=== PATIENT | female | born 1965 | race Caucasian/White ===

== ENCOUNTER 2016-11-01 17:38 | Inpatient (IN) | payer MEDICARE ==
[~2016-11-01] VITALS: Ht 162.5 cm; Wt 89.8 kg
--- NOTE | ~2016-11-01 | WRIGHTHP ---
[place], [place] PATIENT HISTORY AND PHYSICAL EXAM NAME: SANDRA HAM [facility] #: [id number] UNIT #: [id number] ROOM: 402 DOCTOR: NILSA AMBROCIO DO BIRTHDATE: [birth year] DOS: PRIMARY CARE PHYSICIAN: Dr. Mcgill. The patient was seen and evaluated with the resident on 11/02/2016. Please see the resident's note for further details. ASSESSMENT: 1. Acute chronic obstructive pulmonary disease exacerbation. 2. Coronary artery disease with history of ST elevation myocardial infarction in August 2015, which was treated with a stent. 3. Hypertension. 4. Hyperlipidemia. 5. Diabetes mellitus type 2, currently diet controlled. 6. Tobacco abuse. 7. History of heroin abuse. She states she has been clean for a few years now. 8. History of hepatitis C with a positive antibody detected in May 2014. 9. Chronic back pain. 10. History of cervical cancer. 11. Echocardiogram in 2015 measured a normal ejection fraction. PLAN: Continue current treatment with steroids, antibiotics and aerosol treatments. Continue supportive care. NILSA AMBROCIO DO CM:HISPHYS:PATIENT HISTORY AND PHYSICAL EXAMINATION 1502 1531 NILSA AMBROCIO DO 11/02/16 1532 interface
[~2016-11-01 17:38] MED LIST: ABILIFY1 MG/ML PO; ASPIR LOW81 MG PO; BACTRIM DS 8001 TA1 PO; BP PILL; BRILINTA90 M1 PO; CELEXA10 MG PO; CIPRO250 MG PO; CORTISPORIN 1%-10 M1 OT; DONNATAL1 TAB PO; ELMIRON100 MG PO; FLAGYL500 MG PO; Flovent 44 Mcg44 MCG INH; K-LOR 20MEQ20 ME1 PO; KEFLEX500 MG PO; KENALOG 0.025%15 GM T; LIPITOR40 MG PO; METOPROLOL SUCC25 M2 PO; MOBIC7.5 MG PO; MORPHINE SULFAT15 MG PO; Motrin,Rufen800 MG PO; NEURONTIN300 MG PO; NORCO 325 MG-51 TAB PO; OXYCONTIN10 M1 PO; PHENERGAN25 M1 PO; PROVENTIL2 MG INH; PYRIDIUM200 MG PO; REMERON15 MG PO; RIBASPHERE200 M1 PO; SOVALDI400 M1 PO; SPIRIVA RESPIMAT4 GM INH; SPIRIVA18 MCG PO; SUBOXONE 8 MG-1 EACH PO; URIBEL CAPSULE1 EACH PO; VESICARE5 MG PO; VICODIN ES 7.51 EACH PO; VISTARIL25 M1 PO; WELLBUTRIN SR200 MG PO; ZANTAC 150150 MG PO; ZITHROMAX Z PA250 MG PO; ZITHROMAX250 MG PO
[2016-11-01 17:41] VITALS: BP 161/82
[2016-11-01 18:55] VITALS: BP 134/81
[2016-11-01 18:59] LABS: BASO % 0.2 % (0.0-1.0); EOS # 0.2 10*3/uL (0.0-0.4); EOS % 2.3 % (1.0-4.0); HEMATOCRIT 42.5 % (37.0-47.0); HEMOGLOBIN 13.3 g/dl (12.0-16.0); LYMPH # 2.3 10*3/uL (1.3-4.4); LYMPH % 27.8 % (27.0-41.0); MEAN CELL VOLUME 89.9 fl (81.0-99.0); MEAN CORPUSCULAR HGB 28.1 pg (27.0-31.0); MEAN CORPUSCULAR HGB CONC 31.3 g/dl (33.0-37.0); MEAN PLATELET VOLUME 9.4 fl (9.6-12.3); MONO # 0.5 10*3/uL (0.1-1.0); MONO % 6.3 % (3.0-9.0); NEUT # 5.2 10*3/uL (2.3-7.9); NEUT % 62.9 % (47.0-73.0); PLATELET COUNT AUTOMATED 200 10*3/uL (130-400); RED BLOOD COUNT 4.73 10*6/uL (4.10-5.10); RED CELL DISTRI WIDTH 15.6 % (0-14.5); WHITE BLOOD COUNT 8.3 10*3/uL (4.8-10.8)
[2016-11-01 19:09] LABS: PROTHROMBIN TIME 10.2 SECONDS (9.0-12.4)
[2016-11-01 19:23] LABS: BILIRUBIN, TOTAL 0.4 mg/dl (0.2-1.0); CHLORIDE 99 mmol/L (98-107)
[2016-11-01 19:26] LABS: ALBUMIN 3.4 gm/dl (3.1-4.5); ALKALINE PHOSPHATASE 141 U/L (45-117); BUN 6 mg/dl (7-24); C-REACTIVE PROTEIN 2.23 MG/DL (0-0.3); CARBON DIOXIDE 32 mmol/L (21-32); CKMB 0.5 ng/ml (0.5-3.6); CPK 56 U/L (26-192); EST GLOM FILT AFRICAN AMERICAN > 60 ml/min; GLUCOSE 133 mg/dL (65-99); MAGNESIUM 2.2 mg/dL (1.5-2.1); POTASSIUM 3.8 mmol/L (3.5-5.1); SGOT/AST 18 IU/L (3-35); SGPT/ALT 16 U/L (12-78); SODIUM 138 mmol/L (136-145); TOTAL PROTEIN 8.2 gm/dL (6.4-8.2)
[2016-11-01 19:27] LABS: TROPONIN I < 0.015 ng/ml (<0.045)
[2016-11-01 19:46] VITALS: BP 127/67
[2016-11-01 20:18] VITALS: BP 114/61
[2016-11-01 20:45] VITALS: BP 114/77
[2016-11-02] VITALS: BP 144/57; BP 97/55
[2016-11-02 07:00] LABS: BASO % 0.2 % (0.0-1.0); EOS % 0.2 % (1.0-4.0); HEMATOCRIT 43.7 % (37.0-47.0); HEMOGLOBIN 13.6 g/dl (12.0-16.0); LYMPH # 0.9 10*3/uL (1.3-4.4); LYMPH % 17.8 % (27.0-41.0); MEAN CELL VOLUME 91.4 fl (81.0-99.0); MEAN CORPUSCULAR HGB 28.5 pg (27.0-31.0); MEAN CORPUSCULAR HGB CONC 31.1 g/dl (33.0-37.0); MONO # 0.1 10*3/uL (0.1-1.0); MONO % 1.3 % (3.0-9.0); NEUT # 4.2 10*3/uL (2.3-7.9); NEUT % 79.9 % (47.0-73.0); PLATELET COUNT AUTOMATED 196 10*3/uL (130-400); RED BLOOD COUNT 4.78 10*6/uL (4.10-5.10); RED CELL DISTRI WIDTH 15.4 % (0-14.5); WHITE BLOOD COUNT 5.2 10*3/uL (4.8-10.8)
[2016-11-02 07:34] LABS: ALBUMIN 3.1 gm/dl (3.1-4.5); BILIRUBIN, TOTAL 0.3 mg/dl (0.2-1.0); BUN 8 mg/dl (7-24); CARBON DIOXIDE 33 mmol/L (21-32); CHLORIDE 100 mmol/L (98-107); CHOLESTEROL 125 mg/dL (<200); GLUCOSE 251 mg/dL (65-99); MAGNESIUM 2.2 mg/dL (1.5-2.1); POTASSIUM 4.1 mmol/L (3.5-5.1); SODIUM 139 mmol/L (136-145)
[2016-11-02 07:42] LABS: ALKALINE PHOSPHATASE 142 U/L (45-117); EST GLOM FILT AFRICAN AMERICAN > 60 ml/min; FREE T4 1.23 ng/dl (0.76-1.46); HDL CHOLESTEROL 37 mg/dl (40-60); LDL CHOLESTEROL 72 mg/dL (9-159); PHOSPHOROUS 2.8 mg/dL (2.5-4.9); SGOT/AST 17 IU/L (3-35); SGPT/ALT 17 U/L (12-78); THYROID STIM HORMONE (HS) 0.669 uIU/ml (0.358-4.75); TRIGLYCERIDES 80 mg/dl (<150); VLDL CHOLESTEROL 16 mg/dL (6-40)
[2016-11-02 07:59] LABS: HEMOGLOBIN A1c 7.2 % (4.8-5.6)
[2016-11-02 08:00] VITALS: BP 123/62
[2016-11-02 08:45] LABS: VITAMIN D, 25-HYDROXY 15.1 ng/mL (30-100)
[2016-11-02 08:46] LABS: FOLIC ACID 12.2 ng/mL (>5.38)
[2016-11-02 12:00] VITALS: BP 122/60
[2016-11-02 16:00] VITALS: BP 94/52
[2016-11-02 20:00] VITALS: BP 106/52
[2016-11-03] VITALS: BP 116/58
[2016-11-03 06:59] LABS: BASO % 0.2 % (0.0-1.0); HEMATOCRIT 40.5 % (37.0-47.0); HEMOGLOBIN 12.6 g/dl (12.0-16.0); IG # 0.1 10*3/uL (0.0-0.1); LYMPH # 1.2 10*3/uL (1.3-4.4); LYMPH % 10.7 % (27.0-41.0); MEAN CELL VOLUME 89.2 fl (81.0-99.0); MEAN CORPUSCULAR HGB 27.8 pg (27.0-31.0); MEAN CORPUSCULAR HGB CONC 31.1 g/dl (33.0-37.0); MONO # 0.2 10*3/uL (0.1-1.0); MONO % 1.8 % (3.0-9.0); NEUT # 9.4 10*3/uL (2.3-7.9); NEUT % 86.5 % (47.0-73.0); PLATELET COUNT AUTOMATED 180 10*3/uL (130-400); RED BLOOD COUNT 4.54 10*6/uL (4.10-5.10); WHITE BLOOD COUNT 10.9 10*3/uL (4.8-10.8)
[2016-11-03 07:16] LABS: ALBUMIN 2.8 gm/dl (3.1-4.5); ALKALINE PHOSPHATASE 114 U/L (45-117); BILIRUBIN, TOTAL 0.2 mg/dl (0.2-1.0); BUN 10 mg/dl (7-24); CARBON DIOXIDE 30 mmol/L (21-32); CHLORIDE 98 mmol/L (98-107); EST GLOM FILT AFRICAN AMERICAN > 60 ml/min; GLUCOSE 350 mg/dL (65-99); MAGNESIUM 2.3 mg/dL (1.5-2.1); POTASSIUM 4.7 mmol/L (3.5-5.1); SGOT/AST 10 IU/L (3-35); SGPT/ALT 14 U/L (12-78); SODIUM 138 mmol/L (136-145); TOTAL PROTEIN 7.3 gm/dL (6.4-8.2)
[2016-11-03 08:00] VITALS: BP 112/60
[2016-11-03 12:00] VITALS: BP 135/81
[2016-11-03 16:00] VITALS: BP 119/46
[2016-11-03 20:00] VITALS: BP 123/63
[2016-11-04] VITALS: BP 123/71
[2016-11-04 06:30] LABS: BASO % 0.1 % (0.0-1.0); HEMATOCRIT 40.4 % (37.0-47.0); HEMOGLOBIN 12.8 g/dl (12.0-16.0); IG # 0.1 10*3/uL (0.0-0.1); MEAN CORPUSCULAR HGB 28.5 pg (27.0-31.0); MEAN CORPUSCULAR HGB CONC 31.7 g/dl (33.0-37.0); MONO # 0.2 10*3/uL (0.1-1.0); MONO % 1.4 % (3.0-9.0); NEUT # 10.9 10*3/uL (2.3-7.9); NEUT % 89.6 % (47.0-73.0); PLATELET COUNT AUTOMATED 192 10*3/uL (130-400); RED BLOOD COUNT 4.49 10*6/uL (4.10-5.10); RED CELL DISTRI WIDTH 15.2 % (0-14.5); WHITE BLOOD COUNT 12.2 10*3/uL (4.8-10.8)
[2016-11-04 06:35] LABS: ALKALINE PHOSPHATASE 107 U/L (45-117); BILIRUBIN, TOTAL 0.2 mg/dl (0.2-1.0); BUN 14 mg/dl (7-24); CARBON DIOXIDE 33 mmol/L (21-32); CHLORIDE 97 mmol/L (98-107); EST GLOM FILT AFRICAN AMERICAN > 60 ml/min; GLUCOSE 334 mg/dL (65-99); MAGNESIUM 2.1 mg/dL (1.5-2.1); POTASSIUM 4.8 mmol/L (3.5-5.1); SGOT/AST 8 IU/L (3-35); SGPT/ALT 14 U/L (12-78); SODIUM 133 mmol/L (136-145); TOTAL PROTEIN 7.6 gm/dL (6.4-8.2)
[2016-11-04 08:00] VITALS: BP 128/72
[2016-11-04 12:00] VITALS: BP 140/76
[2016-11-04] MEDS ORDERED: PREDNISONE10 MG PO (13:01)
[2016-11-04] MEDS ORDERED: LEVAQUIN750 M1 PO (13:01)
[2016-11-04] MEDS ORDERED: DUONEB 3 MG/3 ML3 M1 NEB (13:44)
== END 2016-11-04 14:08 | disposition home or self-care (01) | DRG 191 ==
LOC: ED 17:38 → 4E 19:42 → EDHOLD 19:42 → 4E 20:02
PROVIDERS: Emergency Medicine; Internal Medicine; Nurse Practitioner Family
DX: J44.1 Chronic obstructive pulmonary disease with (acute) exacerbation (principal); E44.1 Mild protein-calorie malnutrition; Z99.81 Dependence on supplemental oxygen; E11.65 Type 2 diabetes mellitus with hyperglycemia; I10 Essential (primary) hypertension; E78.5 Hyperlipidemia, unspecified; I25.118 Atherosclerotic heart disease of native coronary artery with other forms of angina pectoris; E83.41 Hypermagnesemia; K59.09 Other constipation; F17.210 Nicotine dependence, cigarettes, uncomplicated; F11.10 Opioid abuse, uncomplicated; M54.5 Low back pain; B19.20 Unspecified viral hepatitis C without hepatic coma; G89.29 Other chronic pain; E66.9 Obesity, unspecified; I25.2 Old myocardial infarction; Z85.41 Personal history of malignant neoplasm of cervix uteri; Z68.32 Body mass index [BMI] 32.0-32.9, adult; Z90.710 Acquired absence of both cervix and uterus; Z98.51 Tubal ligation status; Z71.6 Tobacco abuse counseling; Z88.8 Allergy status to other drugs, medicaments and biological substances; Z79.82 Long term (current) use of aspirin; Z79.899 Other long term (current) drug therapy; Z80.1 Family history of malignant neoplasm of trachea, bronchus and lung; Z82.49 Family history of ischemic heart disease and other diseases of the circulatory system; Z82.5 Family history of asthma and other chronic lower respiratory diseases

== ENCOUNTER 2016-12-28 10:10 | Emergency (ER) | payer MEDICARE ==
[~2016-12-28] VITALS: Ht 165.1 cm; Wt 86.2 kg
[~2016-12-28 10:10] MED LIST changes: +DUONEB 3 MG/3 ML3 M1 NEB; +LEVAQUIN750 M1 PO; +PREDNISONE10 MG PO
[2016-12-28] MEDS ORDERED: CLINDAMYCIN150 MG PO (10:31)
[2016-12-28] MEDS ORDERED: SILVADENE1% T (10:31)
== END 2016-12-28 10:47 | disposition home or self-care (01) ==
LOC: ED 10:10
DX: L55.1 Sunburn of second degree (principal); I10 Essential (primary) hypertension; I25.10 Atherosclerotic heart disease of native coronary artery without angina pectoris; J44.9 Chronic obstructive pulmonary disease, unspecified; E78.5 Hyperlipidemia, unspecified; F17.200 Nicotine dependence, unspecified, uncomplicated; Z88.8 Allergy status to other drugs, medicaments and biological substances; Z79.82 Long term (current) use of aspirin

== ENCOUNTER → 2017-04-26 | Day surgery (SDC) | payer MEDICARE ==
[~2017-04-26] VITALS: Ht 162.5 cm; Wt 88.9 kg
[~2017-04-26] MED LIST changes: +CLINDAMYCIN150 MG PO; +GLUCOTROL5 MG PO; +SILVADENE1% T; +TRADJENTA5 M1 PO
--- NOTE | ~2017-04-26 | PROC NOTE ---
[place], [place] PROCEDURE NOTE NAME: SANDRA HAM UNIT #: [id number] ROOM: DOCTOR: JAIRO CONRAD MD BIRTHDATE: [birth year] DOS: 04/26/2017 PREOPERATIVE DIAGNOSES: History of constipation, previous history of colonic polyps. POSTOPERATIVE DIAGNOSES: Colonic polyps x 3 (rectum, 30 cm, 45 cm from the anal verge), sigmoid diverticulosis, internal hemorrhoids. PROCEDURE: Colonoscopy. ENDOSCOPIST: Jairo Conrad MD PEAR PICKER: KENNETH. ANESTHESIA: MAC. INDICATIONS: This is a 51-year-old lady who is here for colonoscopy. She has a previous history of colon polyps that were removed a few years ago and also history of constipation. The procedure and its complications were explained to the patient in detail preoperatively. Complications that were discussed included but were not limited to bleeding, missed lesions and colon perforation. She agreed to proceed. DESCRIPTION OF PROCEDURE: After identifying the patient, the patient was brought to the endoscopy suite and placed in the left lateral position. After time-out procedure was called, IV sedation was administered by the Anesthesia team. A rectal exam was performed, which was within normal limits. An adult colonoscope was now introduced into the anal canal and advanced sequentially into the rectum, sigmoid colon, descending colon, transverse colon, ascending colon, up to the cecum. The prep was found to be optimal. Upon reaching the cecum, the scope was withdrawn. At 45 cm, 30 cm and in the rectum a small polyps were identified, which were removed in a piecemeal process with the help of a biopsy forceps. They were sent for histopathological diagnosis. Thereafter, the scope was withdrawn and upon retroflexing the scope in the rectum, there was found to be internal hemorrhoids, also encountered was uncomplicated sigmoid diverticulosis. The scope was then withdrawn. The patient was taken to the recovery room in stable fashion. There were no complications. Dr. Jairo Conrad, the attending surgeon, was present throughout the operating case. Based on these findings, the patient is recommended to have another colonoscopy in the next 2-5 years or sooner if she has new symptoms. [place], [place] PROCEDURE NOTE NAME: SANDRA HAM UNIT #: [id number] ROOM: DOCTOR: JAIRO CONRAD MD BIRTHDATE: [birth year] Jairo Conrad MD CM:KATHYA:PROCEDURE NOTE [id number] [id number] JAIRO CONRAD MD
[2017-04-26 06:45] VITALS: BP 135/78
[2017-04-26 07:59] VITALS: BP 136/78
[2017-04-26 08:15] VITALS: BP 141/77
[2017-04-26 08:30] VITALS: BP 110/65
== END | disposition home or self-care (01) ==
LOC: SDC 04-23 08:00
DX: Z09 Encounter for follow-up examination after completed treatment for conditions other than malignant neoplasm (principal); D12.5 Benign neoplasm of sigmoid colon; K62.1 Rectal polyp; K57.30 Diverticulosis of large intestine without perforation or abscess without bleeding; K64.8 Other hemorrhoids; I25.2 Old myocardial infarction; I25.10 Atherosclerotic heart disease of native coronary artery without angina pectoris; F17.210 Nicotine dependence, cigarettes, uncomplicated; I11.0 Hypertensive heart disease with heart failure; J44.9 Chronic obstructive pulmonary disease, unspecified; Z95.5 Presence of coronary angioplasty implant and graft; I50.9 Heart failure, unspecified; E78.5 Hyperlipidemia, unspecified; B19.20 Unspecified viral hepatitis C without hepatic coma; E11.9 Type 2 diabetes mellitus without complications; Z79.899 Other long term (current) drug therapy; Z88.8 Allergy status to other drugs, medicaments and biological substances; Z90.710 Acquired absence of both cervix and uterus; Z98.890 Other specified postprocedural states; F32.9 Major depressive disorder, single episode, unspecified; Z98.51 Tubal ligation status; Z83.3 Family history of diabetes mellitus; Z80.9 Family history of malignant neoplasm, unspecified

== ENCOUNTER → 2017-05-30 | Outpatient (CLI) | payer MEDICARE ==
[2017-05-30 12:23] LABS: BASO % 0.2 % (0.0-1.0); EOS # 0.2 10*3/uL (0.0-0.4); EOS % 2.5 % (1.0-4.0); HEMATOCRIT 44.6 % (37.0-47.0); HEMOGLOBIN 14.2 g/dl (12.0-16.0); LYMPH # 2.5 10*3/uL (1.3-4.4); LYMPH % 26.4 % (27.0-41.0); MEAN CELL VOLUME 91.4 fl (81.0-99.0); MEAN CORPUSCULAR HGB 29.1 pg (27.0-31.0); MEAN CORPUSCULAR HGB CONC 31.8 g/dl (33.0-37.0); MEAN PLATELET VOLUME 9.1 fl (9.6-12.3); MONO # 0.5 10*3/uL (0.1-1.0); MONO % 5.4 % (3.0-9.0); NEUT # 6.3 10*3/uL (2.3-7.9); NEUT % 65.1 % (47.0-73.0); PLATELET COUNT AUTOMATED 219 10*3/uL (130-400); RED BLOOD COUNT 4.88 10*6/uL (4.10-5.10); RED CELL DISTRI WIDTH 14.4 % (0-14.5); WHITE BLOOD COUNT 9.6 10*3/uL (4.8-10.8)
[2017-05-30 12:41] LABS: ALBUMIN 3.2 gm/dl (3.1-4.5); ALKALINE PHOSPHATASE 152 U/L (45-117); BUN 5 mg/dl (7-24); CHLORIDE 101 mmol/L (98-107); CREATININE 0.58 mg/dL (0.55-1.02); LDH 152 U/L (84-246); PHOSPHOROUS 2.6 mg/dL (2.5-4.9); POTASSIUM 3.7 mmol/L (3.5-5.1); SGOT/AST 21 IU/L (3-35); SGPT/ALT 20 U/L (12-78); SODIUM 137 mmol/L (136-145); TOTAL PROTEIN 8.4 gm/dL (6.4-8.2)
== END | disposition home or self-care (01) ==
LOC: LAB 12:00
PROVIDERS: Obstetrics & Gynecology Gynecologic Oncology
DX: Z01.818 Encounter for other preprocedural examination (principal); N89.3 Dysplasia of vagina, unspecified; F17.200 Nicotine dependence, unspecified, uncomplicated; J45.909 Unspecified asthma, uncomplicated; J43.9 Emphysema, unspecified

== ENCOUNTER → 2017-10-19 | Outpatient (CLI) | payer MEDICARE | END | disposition home or self-care (01) | LOC: US 10:51 | DX: N32.89 Other specified disorders of bladder (principal) ==

== ENCOUNTER → 2018-04-09 | Outpatient (CLI) | payer MEDICARE | END | disposition home or self-care (01) | LOC: MAMMO 08:26 | DX: Z12.31 Encounter for screening mammogram for malignant neoplasm of breast (principal) ==

== ENCOUNTER 2018-11-13 11:31 | Inpatient (IN) | payer MEDICARE ==
[~2018-11-13] VITALS: Ht 162.5 cm; Wt 85.5 kg
--- NOTE | ~2018-11-13 | EKG ---
[place], [place] ELECTROCARDIOGRAM REPORT NAME: SANDRA HAM UNIT #: [id number] ROOM: 504 DOCTOR: SHANAE DRAFT REPORT BIRTHDATE: [birth year] [facility] Test Date: 2018-11-13 Test Time: 11:31:22 Pat Name: SANDRA HAM Department: Room: 504 Gender: F Pilot Instructor: Tom Burns : 1965 Requested By: SHARAD WALDEN Order Number: [id number] Reading MD: Akhil Park MD Measurements Intervals [place] Rate: 79 P: 37 IA: 141 QRS: 66 QRSD: 111 T: 51 QT: 384 QTc: 441 Interpretive Statements Sinus rhythm Baseline wander in lead(s) V2 Electronically Signed On 11-13-2018 15:50:35 PDT by Akhil Park MD CM:EKGRPT:ELECTROCARDIOGRAM REPORT 1131 1550 SHARAD JOLLY DRAFT REPORT SHARAD WALDEN MD
--- NOTE | ~2018-11-13 | EKG ---
[place], [place] ELECTROCARDIOGRAM REPORT NAME: SANDRA HAM UNIT #: [id number] ROOM: 504 DOCTOR: SHANAE DRAFT REPORT BIRTHDATE: [birth year] [facility] Test Date: 2018-11-13 Test Time: 17:39:57 Pat Name: SANDRA HAM Department: Room: 504 Gender: F Supply Chain Intern: : 1965 Requested By: SHARAD WALDEN Order Number: [id number] Reading MD: Akhil Park MD Measurements Intervals [place] Rate: 69 P: 47 W[place]: 138 QRS: 74 QRSD: 89 T: 59 QT: 429 QTc: 460 Interpretive Statements Sinus rhythm Electronically Signed On 11-13-2018 15:54:07 PDT by Akhil Park MD CM:EKGRPT:ELECTROCARDIOGRAM REPORT [id number] 1554 SHARAD WALDEN MD EPIPHANY DRAFT REPORT SHARAD WALDEN MD
--- NOTE | ~2018-11-13 | EKG ---
[place], [place] ELECTROCARDIOGRAM REPORT NAME: SANDRA HAM UNIT #: [id number] ROOM: 504 DOCTOR: SHANAE DRAFT REPORT BIRTHDATE: [birth year] [facility] Test Date: 2018-11-13 Test Time: 16:12:38 Pat Name: SANDRA HAM Department: Room: [facility] Gender: F Calender Feeder: Priscilla : 1965 Requested By: SHARAD WALDEN Order Number: [id number] Reading MD: Akhil Park MD Measurements Intervals [place] Rate: 68 P: 41 VT: 143 QRS: 66 QRSD: 90 T: 49 QT: 433 QTc: 461 Interpretive Statements Sinus rhythm Baseline wander in lead(s) V5 Electronically Signed On 11-13-2018 15:53:24 PDT by Akhil Park MD CM:EKGRPT:ELECTROCARDIOGRAM REPORT 1612 1553 SHARAD JOLLY DRAFT REPORT SHARAD WALDEN MD
[2018-11-13 11:38] VITALS: BP 117/68
[2018-11-13 11:49] LABS: BASO % 0.3 % (0.0-1.0); EOS # 0.2 10*3/uL (0.0-0.4); EOS % 1.6 % (1.0-4.0); LYMPH # 2.6 10*3/uL (1.3-4.4); LYMPH % 21.7 % (27.0-41.0); MEAN CELL VOLUME 89.7 fl (81.0-99.0); MEAN CORPUSCULAR HGB 28.8 pg (27.0-31.0); MEAN CORPUSCULAR HGB CONC 32.1 g/dl (33.0-37.0); MEAN PLATELET VOLUME 9.8 fl (9.6-12.3); MONO # 0.6 10*3/uL (0.1-1.0); MONO % 4.7 % (3.0-9.0); NEUT # 8.4 10*3/uL (2.3-7.9); NEUT % 71.2 % (47.0-73.0); PLATELET COUNT AUTOMATED 219 10*3/uL (130-400); RED BLOOD COUNT 5.91 10*6/uL (4.10-5.10); RED CELL DISTRI WIDTH 14.7 % (0-14.5); WHITE BLOOD COUNT 11.8 10*3/uL (4.8-10.8)
[2018-11-13 12:00] LABS: ACT PARTIAL THROMBO TIME 28.2 SECONDS (20.0-32.1); INTERNATIONAL NORM RATIO 0.9 (2.0-3.5)
[2018-11-13 12:06] LABS: ALBUMIN 3.4 gm/dl (3.1-4.5); ALKALINE PHOSPHATASE 179 U/L (45-117); BUN 5 mg/dl (7-24); CHLORIDE 96 mmol/L (98-107); CREATININE 0.78 mg/dL (0.55-1.02); POTASSIUM 4.1 mmol/L (3.5-5.1); SGOT/AST 25 IU/L (3-35); SGPT/ALT 28 U/L (12-78); SODIUM 135 mmol/L (136-145); TOTAL PROTEIN 8.6 gm/dL (6.4-8.2)
[2018-11-13 12:16] LABS: TROPONIN I < 0.015 ng/ml (<0.045)
[2018-11-13 12:31] VITALS: BP 109/66
[2018-11-13 13:35] VITALS: BP 107/66
--- NOTE | 2018-11-13 13:35 | NUR ---
A 53, admitted to 5E, under the services of NATALEE Veliz DO with a diagnosis of CHEST PAIN. Chief complaint is CHEST PAIN. Patient arrived via bed from ER. Monitor applied. Initial assessment completed. Vital signs taken and recorded. NATALEE VELIZ DO notified of admission to the unit. Orders received. See assessment for past medical history, medications and allergies. Patient and/or family oriented to unit. [facility] visitation policy reviewed. Clothing/patient valuable form completed. ASHLEY ROQUE
[2018-11-13 14:00] VITALS: BP 107/66
[2018-11-13] MEDS ORDERED: OZEMPIC0.25 MG/01 SQ (14:00)
--- NOTE | 2018-11-13 14:10 | NUR ---
MEDS RECONCILED WITH PT AT BEDSIDE AND CHECKED AGAINST CLAIM HISTORY.
--- NOTE | 2018-11-13 15:59 | NUR ---
RECEIVED REPORT FROM CHARLEEN DE LA GARZA
[2018-11-13 16:00] VITALS: BP 95/50
--- NOTE | 2018-11-13 16:00 | NUR ---
PTS HOME MEDICATIONS HAVE BEEN VERIFIED. DR GALVEZ NOTIFIED
--- NOTE | 2018-11-13 18:23 | NUR ---
CALLED ANSWERING SERVICE REGARDING NEW PT CONSULT FOR DR BASURTO. WAITING MANAGER PERSONAL BACK
--- NOTE | 2018-11-13 18:32 | NUR ---
SPOKE TO DR BASURTO REGARDING NEW PT CONSULT. ORDER TO KEEP PT NPO AFTER MIDNIGHT AND HE WILL SEE PT IN THE MORNING
[2018-11-13 20:00] VITALS: BP 95/61
--- NOTE | 2018-11-13 20:17 | NUR ---
24 HR chart check completed.
--- NOTE | 2018-11-13 20:30 | NUR ---
2010: PT ORDERED DA WITH DUONEB Q 6 HRS. PT REFUSED THEARPY. STATES SHE DOES NOT WANT THE THERAPY. I INFORMED HER OF THE FREQUESNCY AND MED THAT IS ORDERED AND SHE CAN CALL FOR A TREATMENT IF SHE WANTS ONE AT A LATER TIME.
--- NOTE | 2018-11-13 21:00 | NUR ---
RESTING IN BED WATCHING TV. NO DISTRESS NOTED. RESPIRATIONS EASY. LUNGS DIMINISHED WITH EXP WHEEZES. PULSE OX 95% 2L. SMOKERS COUGH NOTED. OFFERED AND EDUCATED REGARDING TEDS, DECLINED. CALL LIGHT WITHIN REACH. NO VOICED COMPLAINTS.
--- NOTE | 2018-11-13 22:00 | NUR ---
BSG 176. REFUSED SS COVERAGE. WILL RECHECK IN AM
[2018-11-14] VITALS: BP 94/62
--- NOTE | 2018-11-14 | NUR ---
SLEEPING. NO DISTRESS NOTED. RESPIRATIONS EASY. VSS. CALL LIGHT WITHIN REACH.
[2018-11-14] MEDS ORDERED: GABAPENTIN800 MG PO (01:26)
--- NOTE | 2018-11-14 04:10 | NUR ---
SLEEPING. O2 IN USE. CALL LIGHT WITHIN REACH
--- NOTE | 2018-11-14 06:00 | NUR ---
SLEPT THROUGHOUT NIGHT WITH NO DISTRESS NOTED. RESPIRATIONS EASY. O2 IN USE. NPO STATUS MAINTAINED UNTIL SEEN BY DR Nando BASURTO. CALL LIGHT WITHIN REACH. NO VOICED COMPLAINTS THIS SHIFT
[2018-11-14 06:45] LABS: ALBUMIN 3.1 gm/dl (3.1-4.5); ALKALINE PHOSPHATASE 160 U/L (45-117); BUN 8 mg/dl (7-24); CHLORIDE 99 mmol/L (98-107); PHOSPHOROUS 4.4 mg/dL (2.5-4.9); SGOT/AST 23 IU/L (3-35); SGPT/ALT 23 U/L (12-78); SODIUM 137 mmol/L (136-145); TOTAL PROTEIN 7.8 gm/dL (6.4-8.2)
[2018-11-14 06:49] LABS: BASO % 0.3 % (0.0-1.0); EOS # 0.3 10*3/uL (0.0-0.4); EOS % 2.9 % (1.0-4.0); HEMATOCRIT 51.2 % (37.0-47.0); HEMOGLOBIN 16.1 g/dl (12.0-16.0); LYMPH # 2.8 10*3/uL (1.3-4.4); LYMPH % 28.3 % (27.0-41.0); MEAN CELL VOLUME 90.3 fl (81.0-99.0); MEAN CORPUSCULAR HGB 28.4 pg (27.0-31.0); MEAN CORPUSCULAR HGB CONC 31.4 g/dl (33.0-37.0); MEAN PLATELET VOLUME 10.3 fl (9.6-12.3); MONO # 0.6 10*3/uL (0.1-1.0); NEUT # 6.1 10*3/uL (2.3-7.9); NEUT % 61.8 % (47.0-73.0); PLATELET COUNT AUTOMATED 206 10*3/uL (130-400); RED BLOOD COUNT 5.67 10*6/uL (4.10-5.10); RED CELL DISTRI WIDTH 14.9 % (0-14.5); WHITE BLOOD COUNT 9.9 10*3/uL (4.8-10.8)
[2018-11-14 12:10] LABS: VITAMIN D, 25-HYDROXY 14.3 ng/mL (30-100)
--- NOTE | 2018-11-14 12:11 | NUR ---
INFORMED SIGNED CONSENT OBTAINED FOR LEXISCAN STRESS TEST WITH DR BASURTO. RESTING EKG NSR HR 70 BP 69/64. PULSE OX 94% ON 2L NC. LUNGS CLEARLY DIMINISHED. PT COMPLETED ONE MINUTE OF A LEXISCAN PROTOCOL WITH PT RECEIVING LEXISCAN 0.4MG IV OVER 10 SECONDS. NO ARRHYTHMIAS OR ST CHANGES NOTED. PT C/P SOB WITH INJECTION. LAST RECOVERY HR OF 88 BP 94/60. PT IN STABLE CONDITION AWAITING NUCLEAR IMAGES.
--- NOTE | 2018-11-14 12:16 | NUR ---
Clinic Office Assistant in to talk to patient. Patient states lives at HOME with ALONE. There are NO steps in the home. Physician: MONICA BOYKIN [facility]acy: [facility] Home health services: NONE Patient's level of ADLs: INDEPENDENT Patient has working utilities: YES DME: OXYGEN AT HS Follow-up physician's appointment after d/c: WILL BE MADE BY HOSPITALIST NURSE DIRECTOR ON DISCHARGE Does patient want to access PORTAL?: NO Discharge plan PT LIVES AT HOME ALONE. STATES SHE IS INDEPENDENT IN HER CARE.. DENIES ANY NEEDS AT HOME AT THIS TIME. SHE HAS OXYGEN AT HOME BUT STATES SHE ONLY WEARS IT AT NIGHT. WILL CONTINUE TO FOLLOW. STATES SHE WILL HAVE A RIDE HOME ON DISCHARGE. AMARI LINDER
[2018-11-14 16:00] VITALS: BP 101/76
--- NOTE | 2018-11-14 17:20 | NUR ---
Discharge instructions reviewed with patient/family. Patient receptive and verbalizes understanding. Follow-up care arranged. Written instructions given to patient/family. JOANA FRANCE
== END 2018-11-14 17:20 | disposition home or self-care (01) | DRG 392 ==
LOC: ED 11:31 → 5E 12:50 → EDHOLD 12:50 → 5E 13:16
PROVIDERS: Emergency Medicine; Internal Medicine Nephrology; ADMIT Internal Medicine
PROC: 3E073KZ Introduction of Other Diagnostic Substance into Coronary Artery, Percutaneous Approach (ICD-10-PCS; principal; 2018-11-14)
PROC: 4A02XM4 Measurement of Cardiac Total Activity, External Approach (ICD-10-PCS; principal; 2018-11-14)
DX: K21.9 Gastro-esophageal reflux disease without esophagitis (principal); E66.9 Obesity, unspecified; R07.89 Other chest pain; I25.10 Atherosclerotic heart disease of native coronary artery without angina pectoris; E78.00 Pure hypercholesterolemia, unspecified; I25.2 Old myocardial infarction; K59.09 Other constipation; J44.9 Chronic obstructive pulmonary disease, unspecified; C53.9 Malignant neoplasm of cervix uteri, unspecified; M54.5 Low back pain; K64.8 Other hemorrhoids; K57.90 Diverticulosis of intestine, part unspecified, without perforation or abscess without bleeding; F17.210 Nicotine dependence, cigarettes, uncomplicated; D72.829 Elevated white blood cell count, unspecified; D72.810 Lymphocytopenia; D75.1 Secondary polycythemia; E87.8 Other disorders of electrolyte and fluid balance, not elsewhere classified; E11.65 Type 2 diabetes mellitus with hyperglycemia; E78.5 Hyperlipidemia, unspecified; G89.29 Other chronic pain; Z95.5 Presence of coronary angioplasty implant and graft; Z79.84 Long term (current) use of oral hypoglycemic drugs; Z88.8 Allergy status to other drugs, medicaments and biological substances; Z79.82 Long term (current) use of aspirin; Z98.51 Tubal ligation status; Z90.710 Acquired absence of both cervix and uterus; Z82.49 Family history of ischemic heart disease and other diseases of the circulatory system; Z80.1 Family history of malignant neoplasm of trachea, bronchus and lung; Z71.6 Tobacco abuse counseling; Z68.32 Body mass index [BMI] 32.0-32.9, adult

== ENCOUNTER → 2019-05-19 | Outpatient (CLI) | payer MEDICARE ==
[~2019-05-19] MED LIST changes: +GABAPENTIN800 MG PO; +OZEMPIC0.25 MG/01 SQ
== END | disposition home or self-care (01) ==
LOC: US 03:22
DX: R10.11 Right upper quadrant pain (principal); R10.13 Epigastric pain; R11.2 Nausea with vomiting, unspecified

== ENCOUNTER → 2019-06-18 | Outpatient (CLI) | payer MEDICARE | END | disposition home or self-care (01) | LOC: MAMMO 12:30 | DX: Z12.31 Encounter for screening mammogram for malignant neoplasm of breast (principal); E11.9 Type 2 diabetes mellitus without complications ==

== ENCOUNTER 2019-08-10 18:06 | Inpatient (IN) | payer MEDICARE ==
[~2019-08-10] VITALS: Ht 162.5 cm; Wt 86.9 kg
[2019-08-10 18:09] VITALS: BP 124/51
[2019-08-10 19:18] LABS: BASO % 0.3 % (0.0-1.0); EOS # 0.1 10*3/uL (0.0-0.4); EOS % 0.9 % (1.0-4.0); HEMATOCRIT 46.5 % (37.0-47.0); HEMOGLOBIN 14.9 g/dl (12.0-16.0); LYMPH # 1.2 10*3/uL (1.3-4.4); LYMPH % 17.3 % (27.0-41.0); MEAN CELL VOLUME 88.2 fl (81.0-99.0); MEAN CORPUSCULAR HGB 28.3 pg (27.0-31.0); MEAN PLATELET VOLUME 10.8 fl (9.6-12.3); MONO # 0.5 10*3/uL (0.1-1.0); MONO % 6.6 % (3.0-9.0); NEUT # 5.2 10*3/uL (2.3-7.9); NEUT % 74.3 % (47.0-73.0); PLATELET COUNT AUTOMATED 265 10*3/uL (130-400); RED BLOOD COUNT 5.27 10*6/uL (4.10-5.10); RED CELL DISTRI WIDTH 14.2 % (0-14.5)
[2019-08-10 19:32] LABS: ALBUMIN 3.3 gm/dl (3.1-4.5); ALKALINE PHOSPHATASE 165 U/L (45-117); BUN 6 mg/dl (7-24); CHLORIDE 96 mmol/L (98-107); CREATININE 0.77 mg/dL (0.55-1.02); POTASSIUM 4.6 mmol/L (3.5-5.1); SGOT/AST 36 IU/L (3-35); SGPT/ALT 31 U/L (12-78); SODIUM 132 mmol/L (136-145); TOTAL PROTEIN 8.5 gm/dL (6.4-8.2)
[2019-08-10 23:08] VITALS: BP 106/64
[2019-08-11] VITALS (7 sets, daily range): BP systolic 83–100; BP diastolic 39–81
[2019-08-11 05:24] LABS: ALBUMIN 2.8 gm/dl (3.1-4.5); ALKALINE PHOSPHATASE 144 U/L (45-117); BUN 6 mg/dl (7-24); CHLORIDE 103 mmol/L (98-107); CHOLESTEROL 89 mg/dL (<200); CREATININE 0.77 mg/dL (0.55-1.02); HDL CHOLESTEROL 23 mg/dl (40-60); LDL CHOLESTEROL 48 mg/dL (9-159); PHOSPHOROUS 3.9 mg/dL (2.5-4.9); POTASSIUM 4.3 mmol/L (3.5-5.1); SGOT/AST 31 IU/L (3-35); SGPT/ALT 28 U/L (12-78); SODIUM 135 mmol/L (136-145); TOTAL PROTEIN 7.3 gm/dL (6.4-8.2); TRIGLYCERIDES 92 mg/dl (<150); VLDL CHOLESTEROL 18 mg/dL (6-40)
[2019-08-11 06:06] LABS: BASO % 0.4 % (0.0-1.0); EOS # 0.1 10*3/uL (0.0-0.4); EOS % 0.9 % (1.0-4.0); HEMATOCRIT 46.8 % (37.0-47.0); HEMOGLOBIN 14.2 g/dl (12.0-16.0); LYMPH # 1.3 10*3/uL (1.3-4.4); LYMPH % 22.7 % (27.0-41.0); MEAN CORPUSCULAR HGB CONC 30.3 g/dl (33.0-37.0); MEAN PLATELET VOLUME 9.8 fl (9.6-12.3); MONO # 0.5 10*3/uL (0.1-1.0); MONO % 8.6 % (3.0-9.0); NEUT # 3.8 10*3/uL (2.3-7.9); RED BLOOD COUNT 5.07 10*6/uL (4.10-5.10); RED CELL DISTRI WIDTH 14.3 % (0-14.5); WHITE BLOOD COUNT 5.7 10*3/uL (4.8-10.8)
[2019-08-11 06:07] LABS: MEAN CELL VOLUME 92.3 fl (81.0-99.0); PLATELET COUNT AUTOMATED 181 10*3/uL (130-400)
[2019-08-11 07:18] LABS: VITAMIN D, 25-HYDROXY 10.1 ng/mL (30-100)
--- NOTE | 2019-08-11 07:57 | NUR ---
DR. ALVAREZ AWARE OF CONSULT
--- NOTE | 2019-08-11 09:54 | NUR ---
PHARMACY NOTIFIED PT PLT COUNT 181 FLAGGED ENOXAPARIN TOLD TO ADMINISTER MEDICATION
--- NOTE | 2019-08-11 09:55 | NUR ---
PT DENIES TAKING INSULIN DAILY STATES SHE ONLY TAKES MEDICATION (OZEMPIC) ONCE A WEEK
--- NOTE | 2019-08-11 11:50 | NUR ---
A 53YR old female, admitted to , under the services of FRANK Kasper DO with a diagnosis of pneumonia. Chief complaint is cough and congestion, N/V and fevers. Patient arrived via stretcher from ER. Monitor applied. Initial assessment completed. Vital signs taken and recorded. See assessment for past medical history, medications and allergies. Patient and/or family oriented to unit. [facility]. Clothing/patient valuable form completed. LUZ HUERTAS L
[2019-08-11] MEDS ORDERED: NEURONTIN800 MG PO (12:17)
--- NOTE | 2019-08-11 13:16 | NUR ---
MEDICATED WITH PO TYLENOL ORDERED PER PT REQUEST FOR C/O HEADACHE.
--- NOTE | 2019-08-11 13:23 | NUR ---
Seafood Fisherman in to talk to patient. Patient states lives at home alone with her family checking in on her. There are 0 steps in the home. There is an elevator. Physician: Jamison Campoverde Pharmacy: [facility] Home health services: none Patient's level of ADLs: INDEPENDENT Patient has working utilities: yes DME: O2 @ 3L nc @ HS and prn through the day, portable O2 tanks, nebulizer, O2 supplier [facility] Follow-up physician's appointment after d/c: will be made by the hospitalist nurse director upon discharge Does patient want to access PORTAL?: no Discharge plan discussed with patient. She lives at home alone in a [facility] building with her family checking in on her. She is independent in her ADLs and ambulation. Discussed home health care services and she denies any home needs at this time. She would like to see about getting a new nebulizer as hers broke and she is currently using her mother's. Hospitalist nurse director notified. When medically stable she will be discharged to home. She will have transportation on discharge just depends on when. RONNIE ZARATE
--- NOTE | 2019-08-11 15:25 | NUR ---
Faxed nebulizer prescription to [facility] where patient receives her other O2 supplies from
--- NOTE | 2019-08-11 20:00 | NUR ---
IN PT ROOM AT THIS TIME TO COMPLETE ASSESSMENT. PT MOVED ROOMS AND HAS ALL OF HER BELONGINGS WITH HER AND NO QUESTIONS OR CONCERNS AT THIS TIME. CALL LIGHT IS WITHIN REACH, WILL CONTINUE TO MONITOR
[2019-08-12] VITALS: BP 98/54
--- NOTE | 2019-08-12 01:02 | NUR ---
24 HR chart check completed.
--- NOTE | 2019-08-12 04:00 | NUR ---
Patient sleeping. Respirations relaxed and easy. Siderails up . [place] on. ASHLEE ASTUDILLO
[2019-08-12 07:18] LABS: HEMATOCRIT 43.2 % (37.0-47.0); HEMOGLOBIN 13.2 g/dl (12.0-16.0); LYMPH # 0.5 10*3/uL (1.3-4.4); LYMPH % 14.6 % (27.0-41.0); MEAN CELL VOLUME 91.5 fl (81.0-99.0); MEAN CORPUSCULAR HGB CONC 30.6 g/dl (33.0-37.0); MEAN PLATELET VOLUME 9.9 fl (9.6-12.3); MONO # 0.1 10*3/uL (0.1-1.0); NEUT # 2.9 10*3/uL (2.3-7.9); PLATELET COUNT AUTOMATED 158 10*3/uL (130-400); RED BLOOD COUNT 4.72 10*6/uL (4.10-5.10); RED CELL DISTRI WIDTH 13.9 % (0-14.5); WHITE BLOOD COUNT 3.6 10*3/uL (4.8-10.8)
[2019-08-12 07:35] LABS: ALBUMIN 2.7 gm/dl (3.1-4.5); BUN 6 mg/dl (7-24); CHLORIDE 107 mmol/L (98-107); CREATININE 0.53 mg/dL (0.55-1.02); POTASSIUM 4.5 mmol/L (3.5-5.1); SGOT/AST 32 IU/L (3-35); SGPT/ALT 30 U/L (12-78); SODIUM 139 mmol/L (136-145)
[2019-08-12 07:36] LABS: ALKALINE PHOSPHATASE 131 U/L (45-117); TOTAL PROTEIN 7.1 gm/dL (6.4-8.2)
[2019-08-12 08:00] VITALS: BP 117/53
--- NOTE | 2019-08-12 08:00 | NUR ---
Patient resting quietly with no c/o discomfort. Respirations easy and regular. Vital signs stable. No overt distress. RACHEL GALARZA
--- NOTE | 2019-08-12 08:04 | NUR ---
SPEECH PATHOLOGY Nursing screen completed. Speech services are not indicated at this time however this dept. will be available if future needs arise. MANOJ WERNER [facility]-GRID CASTING MACHINE OPERATOR HELPER
--- NOTE | 2019-08-12 09:00 | NUR ---
Receiver/Laborer in to see patient. No new needs or request at this time. She denies ant home needs. When medically stable she will be discharged to home. Received call from Ana at [facility] requesting documentation for home nebulizer. Notified hospitalist nurse director.
[2019-08-12 12:00] VITALS: BP 124/70
--- NOTE | 2019-08-12 12:32 | NUR ---
MEDICATED WITH PO TYLENOL ORDERED PER PT REQUEST FOR C/O HEADACHE.
--- NOTE | 2019-08-12 13:18 | NUR ---
Faxed palliative [facility] order to [facility] and notified [facility] nurse
--- NOTE | 2019-08-12 15:00 | NUR ---
MEDICATION EFFECTIVE FOR PAIN.
[2019-08-12 16:00] VITALS: BP 132/88
--- NOTE | 2019-08-12 16:10 | NUR ---
DESIRE SALEEM HERE TO SEE PT.
--- NOTE | 2019-08-12 17:15 | NUR ---
WASTED 2MG OF 8MG SUBOXONE PT'S HOME DOSE IS 6MG BID AND DR MORRISON AWARE YESTERDAY. ALBERT Gomes WITNESSED WASTE.
--- NOTE | 2019-08-12 17:23 | NUR ---
MEDICATED WITH PO M.O.M AND IN ZOFRAN ORDERED PER PT REQUEST FOR C/O CONSTIPATION AND NAUSEA.
--- NOTE | 2019-08-12 19:45 | NUR ---
IN PT ROOM TO DO ASSESSMENT AT THIS TIME. PT STATES THAT SHE FEELS A BIT BETTER TODAY BUT STILL HAS HER COUGH. SHE IS TRYING TO WORK ON GETTING A SPUTUM IN HER CUP SO THAT WE CAN CULTURE IT. SHE NOTES THAT HE CALL LIGHT AND LIGHTS DO NOT WORK, SO I GRABBED THE CALL LIGHT AND IT DID WORK SO I SHOWED HER HOW TO DO IT. PT HAS NO OTHER NEEDS AT THIS TIME. CALL LIGHT IS WITHIN REACH, WILL CONTINUE TO MONITOR
[2019-08-12 20:00] VITALS: BP 120/68
[2019-08-13] VITALS: BP 119/71
--- NOTE | 2019-08-13 01:23 | NUR ---
24 HR chart check completed.
--- NOTE | 2019-08-13 03:33 | NUR ---
Patient sleeping. Respirations relaxed and easy. Siderails up . [place] on. ASHLEE ASTUDILLO
--- NOTE | 2019-08-13 04:26 | NUR ---
PT STATES THAT HER STOMACH IS UPSET AND IS REQUESTING ZOFRAN. PRN ZOFRAN IV IS GIVEN AT THIS TIME. CALL LIGHT WITHIN REACH, WILL CONTINUE TO MONITOR
[2019-08-13 08:00] VITALS: BP 121/81
--- NOTE | 2019-08-13 09:00 | NUR ---
Network Desktop Support Specialist in to see patient. No new needs or request at this time. She denies ant home needs. When medically stable she will be discharged to home. Received call from Ana at [facility] requesting documentation for home nebulizer. Notified hospitalist nurse director.
[2019-08-13 12:00] VITALS: BP 120/69
[2019-08-13 16:00] VITALS: BP 92/54
[2019-08-13 20:00] VITALS: BP 106/65
--- NOTE | 2019-08-13 21:28 | NUR ---
PATIENT MEDICATED WITH TYLENOL FOR COMPLAINTS OF A HEADACHE. WILL CONTINUE TO MONITOR.
--- NOTE | 2019-08-13 22:10 | NUR ---
PATIENT REFUSED TO HAVE BEDSIDE GLUCOSE DONE.
[2019-08-14] VITALS: BP 91/51
--- NOTE | 2019-08-14 07:54 | NUR ---
PT SITTING UP IN BED, RECEIVING A BREATHING TREATMENT [facility]
[2019-08-14 07:55] VITALS: BP 108/72
--- NOTE | 2019-08-14 08:33 | NUR ---
Faxed nebulizer prescription to [facility]
--- NOTE | 2019-08-14 09:00 | NUR ---
Reproduction Machine Loader in to see patient. No new needs or request at this time. She denies ant home needs. When medically stable she will be discharged to home.
--- NOTE | 2019-08-14 09:18 | NUR ---
Spoke to Pamela Islas at [facility] regarding nebulizer. They are not a provider with patient's insurance.
--- NOTE | 2019-08-14 10:00 | NUR ---
PT RESTING CONFORTABLY WILL CONTINUE TO MONITOR [facility]
--- NOTE | 2019-08-14 11:30 | NUR ---
PT REFUSED BS CHECK [facility]
[2019-08-14 12:00] VITALS: BP 118/69
--- NOTE | 2019-08-14 12:00 | NUR ---
PT SITTING ON SIDE OF BED VISITING WITH COMPANY. [facility]
--- NOTE | 2019-08-14 13:23 | NUR ---
PT COMPLAINED OF SIDE PAIN, TYLENOL GIVEN WILL REASSESS EFFECTIVNESS. [facility]
--- NOTE | 2019-08-14 13:29 | NUR ---
PT SITTING UP IN BED VISITING WITH COMPANY [facility]
--- NOTE | 2019-08-14 13:55 | NUR ---
PT ALREADY GETTING RELIEF FROM PAIN WITH TYLENOL, SPUTUM SPECIMEN SENT TO LAB [facility]
[2019-08-14 16:00] VITALS: BP 103/64
[2019-08-14 20:00] VITALS: BP 109/48
[2019-08-15] VITALS: BP 118/80
[2019-08-15 06:14] LABS: HEMATOCRIT 44.5 % (37.0-47.0); HEMOGLOBIN 13.5 g/dl (12.0-16.0); LYMPH # 0.9 10*3/uL (1.3-4.4); LYMPH % 13.6 % (27.0-41.0); MEAN CELL VOLUME 92.3 fl (81.0-99.0); MEAN CORPUSCULAR HGB CONC 30.3 g/dl (33.0-37.0); MONO # 0.3 10*3/uL (0.1-1.0); MONO % 4.2 % (3.0-9.0); NEUT # 5.3 10*3/uL (2.3-7.9); NEUT % 81.6 % (47.0-73.0); PLATELET COUNT AUTOMATED 177 10*3/uL (130-400); RED BLOOD COUNT 4.82 10*6/uL (4.10-5.10); RED CELL DISTRI WIDTH 13.8 % (0-14.5); WHITE BLOOD COUNT 6.5 10*3/uL (4.8-10.8)
--- NOTE | 2019-08-15 06:29 | NUR ---
24 HR chart check completed.
[2019-08-15 06:32] LABS: CREATININE 0.74 mg/dL (0.55-1.02)
[2019-08-15 08:00] VITALS: BP 121/61
[2019-08-15] MEDS ORDERED: MUCINEX ER600 MG PO (09:44)
[2019-08-15] MEDS ORDERED: VITAMIN D32000 UNI1 PO (09:44)
[2019-08-15] MEDS ORDERED: ZITHROMAX250 MG PO (09:44)
[2019-08-15] MEDS ORDERED: PREDNISONE10 MG PO (09:44)
[2019-08-15] MEDS ORDERED: PROAIR HFA8.5 GM INH (09:47)
--- NOTE | 2019-08-15 10:02 | NUR ---
MSDIS Discharge instructions reviewed with patient/family. Patient receptive and verbalizes understanding. Follow-up care arranged. Written instructions given to patient/family. ROMEO MORGAN
== END 2019-08-15 10:15 | disposition home or self-care (01) | DRG 871 ==
LOC: ED 18:06 → EDHOLD 21:02 → 4E 21:02
PROVIDERS: Physician Assistant; Student in an Organized Health Care Education/Training Program; ADMIT Internal Medicine
DX: A41.9 Sepsis, unspecified organism (principal); J18.9 Pneumonia, unspecified organism; J96.21 Acute and chronic respiratory failure with hypoxia; J44.0 Chronic obstructive pulmonary disease with (acute) lower respiratory infection; J44.1 Chronic obstructive pulmonary disease with (acute) exacerbation; E87.1 Hypo-osmolality and hyponatremia; E44.0 Moderate protein-calorie malnutrition; R65.20 Severe sepsis without septic shock; J20.9 Acute bronchitis, unspecified; E66.9 Obesity, unspecified; E78.5 Hyperlipidemia, unspecified; I10 Essential (primary) hypertension; E87.8 Other disorders of electrolyte and fluid balance, not elsewhere classified; E11.65 Type 2 diabetes mellitus with hyperglycemia; R74.0 Nonspecific elevation of levels of transaminase and lactic acid dehydrogenase [LDH]; E55.9 Vitamin D deficiency, unspecified; I25.10 Atherosclerotic heart disease of native coronary artery without angina pectoris; K57.90 Diverticulosis of intestine, part unspecified, without perforation or abscess without bleeding; G47.33 Obstructive sleep apnea (adult) (pediatric); F17.210 Nicotine dependence, cigarettes, uncomplicated; T38.0X5A Adverse effect of glucocorticoids and synthetic analogues, initial encounter; Y92.89 Other specified places as the place of occurrence of the external cause; Z99.81 Dependence on supplemental oxygen; Z68.34 Body mass index [BMI] 34.0-34.9, adult; Z85.41 Personal history of malignant neoplasm of cervix uteri; I25.2 Old myocardial infarction; Z79.82 Long term (current) use of aspirin; Z79.899 Other long term (current) drug therapy; Z86.19 Personal history of other infectious and parasitic diseases; Z95.5 Presence of coronary angioplasty implant and graft; Z90.710 Acquired absence of both cervix and uterus; Z98.51 Tubal ligation status; Z80.1 Family history of malignant neoplasm of trachea, bronchus and lung; Z83.6 Family history of other diseases of the respiratory system; Z88.8 Allergy status to other drugs, medicaments and biological substances

== ENCOUNTER 2020-10-25 11:29 | Emergency (ER) | payer MEDICARE ==
[~2020-10-25] VITALS: Ht 165.1 cm; Wt 86.2 kg
[~2020-10-25 11:29] MED LIST changes: +MUCINEX ER600 MG PO; +NEURONTIN800 MG PO; +PROAIR HFA8.5 GM INH; +VITAMIN D32000 UNI1 PO
[2020-10-25] MEDS ORDERED: ZYRTEC10 M2 PO (12:08)
[2020-10-25] MEDS ORDERED: CEFDINIR300 MG PO (12:08)
== END 2020-10-25 12:29 | disposition home or self-care (01) ==
LOC: ED 11:29
DX: H65.91 Unspecified nonsuppurative otitis media, right ear (principal); Z79.899 Other long term (current) drug therapy; Z98.890 Other specified postprocedural states; Z95.818 Presence of other cardiac implants and grafts; Z90.711 Acquired absence of uterus with remaining cervical stump; Z98.51 Tubal ligation status

== ENCOUNTER 2020-11-11 11:56 | Emergency (ER) | payer MEDICARE ==
[~2020-11-11] VITALS: Ht 165.1 cm; Wt 86.2 kg
[~2020-11-11 11:56] MED LIST changes: +CEFDINIR300 MG PO; +ZYRTEC10 M2 PO
[2020-11-11 15:34] LABS: BASO % 0.4 % (0.0-1.0); EOS # 0.3 10*3/uL (0.0-0.4); EOS % 2.4 % (1.0-4.0); LYMPH # 2.9 10*3/uL (1.3-4.4); LYMPH % 25.9 % (27.0-41.0); MEAN CELL VOLUME 89.6 fl (81.0-99.0); MEAN CORPUSCULAR HGB 27.5 pg (27.0-31.0); MEAN CORPUSCULAR HGB CONC 30.7 g/dl (33.0-37.0); MONO # 0.6 10*3/uL (0.1-1.0); MONO % 5.3 % (3.0-9.0); NEUT # 7.4 10*3/uL (2.3-7.9); NEUT % 65.5 % (47.0-73.0); PLATELET COUNT AUTOMATED 230 10*3/uL (130-400); RED BLOOD COUNT 6.03 10*6/uL (4.10-5.10); RED CELL DISTRI WIDTH 13.8 % (0-14.5); WHITE BLOOD COUNT 11.3 10*3/uL (4.8-10.8)
[2020-11-11 15:55] LABS: ALBUMIN 3.4 gm/dl (3.1-4.5); ALKALINE PHOSPHATASE 230 U/L (45-117); BUN 12 mg/dl (7-24); CHLORIDE 96 mmol/L (98-107); POTASSIUM 5.2 mmol/L (3.5-5.1); SGOT/AST 29 IU/L (3-35); SGPT/ALT 53 U/L (12-78); SODIUM 133 mmol/L (136-145)
== END 2020-11-11 16:52 | disposition home or self-care (01) ==
LOC: ED 11:56
PROVIDERS: Nurse Practitioner
DX: H93.11 Tinnitus, right ear (principal); Z88.8 Allergy status to other drugs, medicaments and biological substances; Z79.899 Other long term (current) drug therapy; Z79.82 Long term (current) use of aspirin; Z90.711 Acquired absence of uterus with remaining cervical stump; Z98.51 Tubal ligation status; Z95.818 Presence of other cardiac implants and grafts

== ENCOUNTER → 2021-01-03 | Outpatient (CLI) | payer MEDICARE | END | disposition home or self-care (01) | LOC: MAMMO 14:33 | PROVIDERS: ATTEND Physician Assistant | DX: Z12.31 Encounter for screening mammogram for malignant neoplasm of breast (principal); N64.89 Other specified disorders of breast ==

== ENCOUNTER → 2022-07-19 | Outpatient (CLI) | payer MEDICARE | END | disposition home or self-care (01) | LOC: MAMMO 11:00 | PROVIDERS: ATTEND Physician Assistant | DX: Z12.31 Encounter for screening mammogram for malignant neoplasm of breast (principal); N64.9 Disorder of breast, unspecified ==

== ENCOUNTER → 2022-09-12 | Outpatient (CLI) | payer MEDICARE ==
[2022-09-12 10:01] LABS: BASO % 0.2 % (0.0-1.0); EOS # 0.2 10*3/uL (0.0-0.4); EOS % 2.2 % (1.0-4.0); HEMATOCRIT 49.5 % (37.0-47.0); LYMPH # 2.4 10*3/uL (1.3-4.4); LYMPH % 28.4 % (27.0-41.0); MEAN CELL VOLUME 91.2 fl (81.0-99.0); MEAN CORPUSCULAR HGB 28.2 pg (27.0-31.0); MEAN CORPUSCULAR HGB CONC 30.9 g/dl (33.0-37.0); MEAN PLATELET VOLUME 9.3 fl (9.6-12.3); MONO # 0.5 10*3/uL (0.1-1.0); MONO % 5.6 % (3.0-9.0); NEUT # 5.3 10*3/uL (2.3-7.9); NEUT % 63.1 % (47.0-73.0); PLATELET COUNT AUTOMATED 196 10*3/uL (130-400); RED BLOOD COUNT 5.43 10*6/uL (4.10-5.10); RED CELL DISTRI WIDTH 13.9 % (0-14.5); WHITE BLOOD COUNT 8.4 10*3/uL (4.8-10.8)
[2022-09-12 10:16] LABS: ALKALINE PHOSPHATASE 179 U/L (46-116); BUN 5 mg/dl (9-23); CHLORIDE 101 mmol/L (98-107); POTASSIUM 4.1 mmol/L (3.4-5.1); SGPT/ALT 29 U/L (10-49); TOTAL PROTEIN 8.1 gm/dL (6.0-8.0)
== END | disposition home or self-care (01) ==
LOC: LAB 09:39
PROVIDERS: ATTEND Nurse Practitioner Family
DX: F11.20 Opioid dependence, uncomplicated (principal)

== ENCOUNTER → 2022-11-08 | Day surgery (SDC) | payer MEDICARE ==
[~2022-11-08] VITALS: Ht 162.5 cm; Wt 81.6 kg
[~2022-11-08] MED LIST changes: +Amaryl2 MG PO; +JARDIANCE25 MG PO
[2022-11-08 08:30] VITALS: BP 134/69
[2022-11-08 09:36] VITALS: BP 113/61
[2022-11-08 09:51] VITALS: BP 106/64
[2022-11-08 10:06] VITALS: BP 111/61
== END | disposition home or self-care (01) ==
LOC: SDC 11-05 12:30
PROVIDERS: ATTEND Surgery
DX: Z12.11 Encounter for screening for malignant neoplasm of colon (principal); D12.4 Benign neoplasm of descending colon; K57.30 Diverticulosis of large intestine without perforation or abscess without bleeding; I11.0 Hypertensive heart disease with heart failure; I50.9 Heart failure, unspecified; J44.9 Chronic obstructive pulmonary disease, unspecified; I25.2 Old myocardial infarction; I25.10 Atherosclerotic heart disease of native coronary artery without angina pectoris; F32.A Depression, unspecified; F17.210 Nicotine dependence, cigarettes, uncomplicated; Z86.010 Personal history of colon polyps; Z85.41 Personal history of malignant neoplasm of cervix uteri; Z90.710 Acquired absence of both cervix and uterus; Z98.890 Other specified postprocedural states

== ENCOUNTER → 2023-09-04 | Outpatient (CLI) | payer MEDICARE | END | disposition home or self-care (01) | LOC: CT 14:00 | PROVIDERS: ATTEND Physician Assistant | DX: J43.2 Centrilobular emphysema (principal); R91.8 Other nonspecific abnormal finding of lung field; I25.10 Atherosclerotic heart disease of native coronary artery without angina pectoris; R16.1 Splenomegaly, not elsewhere classified; Z13.6 Encounter for screening for cardiovascular disorders; F17.210 Nicotine dependence, cigarettes, uncomplicated ==

== ENCOUNTER → 2024-01-18 | Outpatient (CLI) | payer MEDICARE ==
[~2024-01-18] MED LIST changes: +IOHEXOL 300 MG/ML 100 ML VIAL IV ONE; +IOHEXOL 300 MG/ML 100 ML VIAL ONE
== END | disposition home or self-care (01) ==
LOC: CT 00:40
PROVIDERS: ATTEND Physician Assistant
DX: R91.8 Other nonspecific abnormal finding of lung field (principal); I25.10 Atherosclerotic heart disease of native coronary artery without angina pectoris; K76.0 Fatty (change of) liver, not elsewhere classified; R16.1 Splenomegaly, not elsewhere classified; F17.210 Nicotine dependence, cigarettes, uncomplicated

== ENCOUNTER → 2024-07-23 | Outpatient (CLI) | payer MEDICARE ==
[~2024-07-23] MED LIST changes: -IOHEXOL 300 MG/ML 100 ML VIAL IV ONE; -IOHEXOL 300 MG/ML 100 ML VIAL ONE
== END | disposition home or self-care (01) ==
LOC: MAMMO 03:14
PROVIDERS: ATTEND Obstetrics & Gynecology
DX: Z12.31 Encounter for screening mammogram for malignant neoplasm of breast (principal)

== ENCOUNTER → 2024-11-09 | Outpatient (CLI) | payer MEDICARE ==
[2024-11-09 09:45] LABS: HEMATOCRIT 46.6 % (37.0-47.0); MEAN CELL VOLUME 91.7 fl (81.0-99.0); MEAN CORPUSCULAR HGB 27.4 pg (27.0-31.0); MEAN CORPUSCULAR HGB CONC 29.8 g/dl (33.0-37.0); MEAN PLATELET VOLUME 9.1 fl (9.6-12.3); RED BLOOD COUNT 5.08 10*6/uL (4.10-5.10); RED CELL DISTRI WIDTH 13.4 % (0-14.5); WHITE BLOOD COUNT 7.9 10*3/uL (4.8-10.8)
[2024-11-09 10:48] LABS: ALKALINE PHOSPHATASE 137 U/L (46-116); CHOLESTEROL 128 mg/dL (<200); LDL CHOLESTEROL 71 mg/dL (9-159); SGPT/ALT 28 U/L (5-49); TOTAL PROTEIN 7.9 gm/dL (6.0-8.0); TRIGLYCERIDES 100 mg/dl (<150)
== END | disposition home or self-care (01) ==
LOC: LAB 09:19
PROVIDERS: ATTEND Nurse Practitioner Family
DX: K75.0 Abscess of liver (principal); E78.5 Hyperlipidemia, unspecified

== ENCOUNTER → 2024-12-10 | Outpatient (CLI) | payer MEDICARE | END | disposition home or self-care (01) | LOC: LAB 08:18 | PROVIDERS: ATTEND Nurse Practitioner Family | DX: K74.60 Unspecified cirrhosis of liver (principal) ==

== ENCOUNTER 2024-12-25 19:54 | Emergency (ER) | payer MEDICARE ==
[~2024-12-25] VITALS: Ht 162.5 cm; Wt 81.2 kg
== END 2024-12-25 22:19 | disposition home or self-care (01) ==
LOC: ED 19:54
DX: K56.41 Fecal impaction (principal); I25.10 Atherosclerotic heart disease of native coronary artery without angina pectoris; I10 Essential (primary) hypertension; E78.5 Hyperlipidemia, unspecified; J44.9 Chronic obstructive pulmonary disease, unspecified; I25.2 Old myocardial infarction; E11.9 Type 2 diabetes mellitus without complications; E66.9 Obesity, unspecified; Z88.8 Allergy status to other drugs, medicaments and biological substances; Z79.899 Other long term (current) drug therapy; Z79.82 Long term (current) use of aspirin; Z79.84 Long term (current) use of oral hypoglycemic drugs; Z68.30 Body mass index [BMI] 30.0-30.9, adult; Z87.891 Personal history of nicotine dependence

== ENCOUNTER 2025-01-22 20:29 | Emergency (ER) | payer MEDICARE ==
[~2025-01-22] VITALS: Ht 162.5 cm; Wt 77.1 kg
[2025-01-22 21:46] LABS: BASO # 0.0 10*3/uL (0.0-0.1); BASO % 0.3 % (0.0-1.0); EOS # 0.2 10*3/uL (0.0-0.4); EOS % 1.7 % (1.0-4.0); MEAN CELL VOLUME 88.2 fl (81.0-99.0); MEAN CORPUSCULAR HGB 27.1 pg (27.0-31.0); MEAN PLATELET VOLUME 9.0 fl (9.6-12.3); MONO # 0.6 10*3/uL (0.1-1.0); MONO % 5.5 % (3.0-9.0); NEUT # 7.5 10*3/uL (2.3-7.9); NEUT % 70.3 % (47.0-73.0); NUCLEATED RED BLOOD CELL 0.0 % (0.0-0.0); NUCLEATED RED BLOOD CELL 0.0 10*3/uL (0.0-0.0); PLATELET COUNT AUTOMATED 240 10*3/uL (130-400); RED CELL DISTRI WIDTH 12.5 % (0-14.5)
[2025-01-22 21:56] LABS: BILIRUBIN Negative (Negative); BLOOD 1+ (Negative); CLARITY Clear (Clear); COLOR Yellow (Yellow); KETONE Negative (Negative); LEUKO ESTERASE 3+ (Negative); NITRITE Negative (Negative); PH 7.0 (4.5-8.0); SPECIFIC GRAVITY <= 1.005 (1.001-1.030); UROBILINOGEN 1.0 E.U./dl (0.0-1.0)
[2025-01-22 22:03] LABS: BACTERIA 1+; WBC 41-50 wbc/hpf (0-5)
[2025-01-22 22:07] LABS: BUN 14 mg/dl (9-23); SGPT/ALT 23 U/L (5-49)
[2025-01-22] MEDS ORDERED: SODIUM CHLORIDE 0.9% 1,000 ML IV ONE (22:30)
== END 2025-01-23 08:51 | disposition short-term general hospital (02) ==
LOC: ED 20:29
PROVIDERS: Nurse Practitioner Family
DX: R19.00 Intra-abdominal and pelvic swelling, mass and lump, unspecified site (principal); N17.9 Acute kidney failure, unspecified; K59.00 Constipation, unspecified; N39.0 Urinary tract infection, site not specified; E11.65 Type 2 diabetes mellitus with hyperglycemia; E87.1 Hypo-osmolality and hyponatremia; N13.30 Unspecified hydronephrosis; I25.10 Atherosclerotic heart disease of native coronary artery without angina pectoris; J44.9 Chronic obstructive pulmonary disease, unspecified; I25.2 Old myocardial infarction; I10 Essential (primary) hypertension; E78.5 Hyperlipidemia, unspecified; E66.9 Obesity, unspecified; Z88.8 Allergy status to other drugs, medicaments and biological substances; Z79.899 Other long term (current) drug therapy; Z79.82 Long term (current) use of aspirin; Z79.84 Long term (current) use of oral hypoglycemic drugs; Z68.30 Body mass index [BMI] 30.0-30.9, adult; Z85.41 Personal history of malignant neoplasm of cervix uteri; Z98.890 Other specified postprocedural states; Z90.710 Acquired absence of both cervix and uterus; Z87.891 Personal history of nicotine dependence

== ENCOUNTER → 2025-05-06 | Outpatient (CLI) | payer MEDICARE ==
[~2025-05-06] MED LIST changes: +AMOX-CLAV 875-1 EACH PO; +AVPAK AZITHROM250 M1 PO; +CELECOXIB100 M1 PO; +JARDIANCE10 MG PO; +MUCUS RELIEF E600 MG PO; +ONDANSETRON HYDR8 MG PO; +ROSUVASTATIN CA10 MG PO; +SENNA8.6 MG PO
== END | disposition home or self-care (01) ==
LOC: MAMMO 05-05 13:00 → LAB 12:20 → MAMMO 13:00
DX: Z01.818 Encounter for other preprocedural examination (principal); N63.21 Unspecified lump in the left breast, upper outer quadrant; R92.322 Mammographic fibroglandular density, left breast; R92.1 Mammographic calcification found on diagnostic imaging of breast; R59.0 Localized enlarged lymph nodes; E87.6 Hypokalemia

== ENCOUNTER → 2025-05-25 | Outpatient (CLI) | payer MEDICARE | END | disposition home or self-care (01) | LOC: MAMMO 13:14 | PROVIDERS: ATTEND Physician Assistant | DX: N63.41 Unspecified lump in right breast, subareolar (principal); N64.89 Other specified disorders of breast; R92.311 Mammographic fatty tissue density, right breast; R92.1 Mammographic calcification found on diagnostic imaging of breast ==

== ENCOUNTER 2025-06-17 17:13 | Emergency (ER) | payer MEDICARE ==
[~2025-06-17] VITALS: Ht 162.5 cm; Wt 73.5 kg
[2025-06-17 19:25] LABS: BILIRUBIN Negative (Negative); BLOOD 3+ (Negative); CLARITY Turbid (Clear); COLOR Yellow (Yellow); KETONE Negative (Negative); LEUKO ESTERASE 3+ (Negative); NITRITE Positive (Negative); PH 6.0 (4.5-8.0); SPECIFIC GRAVITY 1.020 (1.001-1.030); UROBILINOGEN 1.0 E.U./dl (0.0-1.0)
[2025-06-17 19:40] LABS: BACTERIA 2+; WBC TNTC wbc/hpf (0-5)
[2025-06-17] MEDS ORDERED: Ciprofloxacin Hydrochloride 500 MG TAB PO ONE (19:45)
[2025-06-17] MEDS ORDERED: CIPRO500 MG PO (19:47)
== END 2025-06-17 20:13 | disposition home or self-care (01) ==
LOC: ED 17:13
PROVIDERS: Emergency Medicine
DX: N39.0 Urinary tract infection, site not specified (principal); J44.89 Other specified chronic obstructive pulmonary disease; I25.2 Old myocardial infarction; I11.0 Hypertensive heart disease with heart failure; I50.9 Heart failure, unspecified; F32.A Depression, unspecified; F17.210 Nicotine dependence, cigarettes, uncomplicated; Z98.890 Other specified postprocedural states; Z90.710 Acquired absence of both cervix and uterus; Z88.1 Allergy status to other antibiotic agents; Z86.19 Personal history of other infectious and parasitic diseases